=== PATIENT | female | born 1980 | race Caucasian/White ===

== ENCOUNTER 2020-09-05 08:59 | Emergency (ER) | payer SELFPAY ==
[2020-09-05 09:13] VITALS: BP 148/99; PULSE 75; RESP 20; TEMP 37.3; O2SAT 100
--- NOTE | 2020-09-05 09:13 | ED.SKABFB ---
HPI - Skin/Abscess/Foreign Bdy General Chief complaint: Skin/Abscess/Foreign Body Stated complaint: Rash Time Seen by Provider: 09/05/20 09:18 Source: patient and RN notes reviewed Mode of arrival: ambulatory Limitations: no limitations History of Present Illness HPI narrative: 40-year-old female presents with concern for rash. Reports rash on her neck, that has spread to her left antecubital area. She denies any known triggers, new detergents, new personal care products, new foods, new medicines, new household products. Reports the rash is mildly itchy. She denies any intervention. She denies swollen lips, swollen tongue, difficulty swallowing,, nausea, vomiting, diarrhea, fever MD complaint: rash Related Data Home Medications Medication Instructions Recorded Confirmed buprenorphine-naloxone 1 tablet SUBLINGUAL BID 09/05/20 09/05/20 Allergies Allergy/AdvReac Type Severity Reaction Status Date / Time No Known Allergies Allergy Verified 09/05/20 09:19 Review of Systems Review of Systems: Narrative: CONSTITUTIONAL: Denies malaise, chills, sweats, or fever. EYES: Denies visual changes, redness, or discharge. ENT: Denies rhinorrhea, congestion, sinus pain, otalgia or sore throat. Denies swollen lips, swollen tongue CARDIOVASCULAR: Denies chest pain, palpitations, or edema. RESPIRATORY: Denies cough or dyspnea. GASTROINTESTINAL: Denies abdominal pain, nausea, vomiting, diarrhea SKIN: Reports mildly itchy rash to the neck and left arm MUSCULOSKELETAL: Denies myalgia. NEUROLOGIC: Denies headache. All systems reviewed & are unremarkable except as noted in HPI and below PMFSH Comments At time of signature, agree with nursing past medical, surgical, social and family history. There is no relevant family history pertinent to the presenting complaint Exam Narrative: Exam Narrative: GENERAL: Well-appearing, well-nourished, and in no acute distress. HEAD: Normocephalic, atraumatic. EYES: PERRLA, conjunctivae clear, and EOMI. No nystagmus. ENT: Nares clear. Mucous membranes moist. Oropharynx without edema, erythema or lesions. Tonsils not enlarged and without exudate. NECK: Supple. CHEST: No respiratory distress. Clear to auscultation. No bony deformities, no asymmetry. Speaks in full sentences. HEART: Regular rate and rhythm. SKIN: Warm, dry. Patches of erythema, mild edema with satellite papules noted to the neck, left antecubital space, irregular borders consistent with contact dermatitis NEURO: Alert and oriented x3. PSYCH: Normal mood and affect Course Course Emergency Course: Patient is aware of diagnosis, understands and agrees to treatment plan. Anticipatory guidance given. Patient agrees to follow-up as directed and is aware of reasons to seek care at the emergency department. Portions of this record may have been created with voice recognition software Vital Signs Vital signs: Vital Signs Temperature 99.1 F 09/05/20 09:13 Pulse Rate 75 09/05/20 09:13 Respiratory Rate 20 09/05/20 09:13 Blood Pressure 148/99 H 09/05/20 09:13 Pulse Oximetry 100 09/05/20 09:13 Temperature 99.1 F 09/05/20 09:13 Pulse Rate 75 09/05/20 09:13 Respiratory Rate 20 09/05/20 09:13 Blood Pressure 148/99 H 09/05/20 09:13 Pulse Oximetry 100 09/05/20 09:13 Reviewed. Patient has been instructed to follow up with her primary care provider within the next week regarding her elevated blood pressure today. MDM - Skin/Abscess/Foreign Bdy MDM Narrative Medical decision making narrative: Does not appear at this time to be erythema multiforme, bullous, SJS, TEN; no evidence at this time to suggest RMSF, endocarditis or Lyme disease; patient looks well, nontoxic and is tolerating oral intake; no neurologic signs or symptoms; no headache, photophobia or neck pain; afebrile; appropriate for initial outpatient treatment; discussed the importance of follow-up, patient agrees; question, viral exanthema, contact dermatitis
[2020-09-05 09:33] VITALS: BP 120/66; PULSE 94; RESP 18; TEMP 36.9; O2SAT 100
== END 2020-09-05 09:34 | disposition home or self-care (01) ==
PROVIDERS: Emergency Provider Nurse Practitioner
DX: L25.9 Unspecified contact dermatitis, unspecified cause (principal)
CPT/HCPCS: 99213; G0463

== ENCOUNTER 2023-06-30 10:25 | Emergency (ER) | payer OTHER, SELFPAY ==
--- NOTE | ~2023-06-30 | XR_ITS ---
PA, oblique, and lateral views of the left fifth finger CLINICAL HISTORY: Injury FINDINGS: There is a transverse, minimally displaced fracture the distal tuft of the fifth distal pha lanx. No other fracture seen. No intra-articular extension. Joint spaces are preserved. Soft tissues are unremarkable. IMPRESSION: Transverse, minimally displaced fracture of the distal tuft of the fifth distal phalanx. Reviewed, dictated and finalized at location . RECAPPER
[2023-06-30 10:36] VITALS: BP 121/81; PULSE 77; RESP 20; TEMP 37.1; O2SAT 98
--- NOTE | 2023-06-30 11:02 | ED.UPPEXIN ---
HPI - Extremity Injury (Upper) General Chief Complaint: Extremity Injury, Upper Stated Complaint: Smashed left pinky finger Source: patient Mode of arrival: ambulatory Limitations: no limitations History of Present Illness HPI narrative: 42-year-old female presented for complaint of pain to the tip of the left little finger after injury today. Reports laceration across the nail bed and pain to the end of the finger. States the window of the tailgate of her vehicle slammed onto the finger when she closed the door. No treatment [employer]. Left hand dominant. Related Data Allergies Allergy/AdvReac Type Severity Reaction Status Date / Time No Known Allergies Allergy Verified 06/30/23 10:45 Review of Systems Review of Systems: CONSTITUTIONAL: Denies body aches, fever, chills EYES: Denies visual changes ENT: Denies rhinorrhea, congestion CARDIOVASCULAR: Denies chest pain, palpitations, or edema. RESPIRATORY: Denies cough or dyspnea. GASTROINTESTINAL: Denies abdominal pain, nausea, vomiting, or diarrhea. SKIN: Denies rash, itching, or wounds. MUSCULOSKELETAL: reports left little finger pain, laceration to nail Denies back pain, joint pain, or myalgia. NEUROLOGIC: Denies headache, numbness, tingling, or weakness. All systems reviewed & are unremarkable except as noted in HPI and below PMFSH Comments At time of signature, I have reviewed and agree with nursing past medical, surgical, social and family history unless otherwise noted. Please see nursing chart for further information. There is no relevant family history pertinent to the presenting complaint Exam Narrative: GENERAL: Well-appearing HEAD: Normocephalic, atraumatic. CHEST: Speaks in full sentences. No respiratory distress. HEART: Regular rate and rhythm. Normal and equal peripheral pulses. EXTREMITIES: Left 5th digit with Complete transverse laceration to middle of nail bed; erythema and hematoma to distal end of the digit with subungual hematoma to distal half of nail; mild active bleeding around nail. 5th finger has limited strength and sensation due to pain, normal range of motion to finger joints. Tenderness with light palpation of distal end of digit. No swelling. pulse palpable and equal bilaterally, skin warm, dry, pink. Capillary refill less than 3 seconds. SKIN: Warm, dry, no rash. NEURO: Alert and oriented x3. PSYCH: Normal mood and affect Course Course Emergency Course: Patient is aware of diagnosis, understands and agrees to treatment plan. Anticipatory guidance given. Patient agrees to follow-up as directed and is aware of reasons to seek care at the emergency department. Portions of this record may have been created with voice recognition software Level of Care: Express Care Visit Vital Signs Vital signs: Vital Signs Temperature 98.7 F 06/30/23 10:36 Pulse Rate 77 06/30/23 10:36 Respiratory Rate 20 06/30/23 10:36 Blood Pressure 121/81 06/30/23 10:36 Pulse Oximetry 98 06/30/23 10:36 Oxygen Delivery Room Air 06/30/23 10:36 Temperature 98.7 F 06/30/23 10:36 Pulse Rate 77 06/30/23 10:36 Respiratory Rate 20 06/30/23 10:36 Blood Pressure 121/81 06/30/23 10:36 Pulse Oximetry 98 06/30/23 10:36 Oxygen Delivery Room Air 06/30/23 10:36 Reviewed MDM - Extremity Injury (Upper) MDM Narrative Medical decision making narrative: results of x-ray reviewed with patient. Dressing and finger splint applied to the site after wound was cleansed. Contacted Dr. Love's office who requested patient call to schedule the f/u appointment. Discussed physical exam findings and wound care with pt, reviewed Rxs. Advised supportive measures and signs/symptoms to go to the ER. Pt is appropriate for outpt treatment and f/u. Differential Diagnosis Differential diagnosis: Likely dislocation of finger and other ( finger fracture, subungual hematoma, nail bed laceration) Imaging Data Radiologist's impression: Patient
== END 2023-06-30 11:28 | disposition home or self-care (01) ==
PROVIDERS: Emergency Provider Nurse Practitioner Family
DX: S62.637B Displaced fracture of distal phalanx of left little finger, initial encounter for open fracture (principal); W20.8XXA Other cause of strike by thrown, projected or falling object, initial encounter
CPT/HCPCS: 29130; 73140; 99214; G0463

== ENCOUNTER 2023-10-14 08:15 | Outpatient (CLI) | payer OTHER, SELFPAY ==
[2023-10-14 18:45] LABS: Hematocrit 40.7 % (37.0-47.0); Hemoglobin 12.7 g/dL (12.0-15.0); Mean Corpuscular HGB Conc 31.2 g/dl (32-36); Mean Corpuscular Hemoglobin 30.4 pg (26-34); Mean Corpuscular Volume 97.4 fl (80-100); Mean Platelet Volume 11.2 fl (7.4-10.4); Platelet Count Result 283 k/mm3 (150-375); Red Blood Count 4.18 M/mm3 (4.2-5.4); White Blood Count 7.6 K/mm3 (4.5-10.0)
[2023-10-14 19:09] LABS: Alanine Aminotransferase 28 U/L (6-35); Albumin Level 3.8 g/dL (3.5-5.1); Alkaline Phosphatase 52 U/L (38-126); Anion Gap 6 mmol/L (8-16); Aspartate Amino Transferase 63 U/L (14-36); Bilirubin,Total 0.7 mg/dL (0.2-1.3); Blood Urea Nitrogen 12 mg/dL (7-17); Calcium 8.9 mg/dL (8.4-10.2); Carbon Dioxide 28 mmol/L (22-30); Chloride 103 mmol/L (98-107); Cholesterol 137 mg/dL (0-200); Estimated Glomerular Filt Rate > 60; Glucose 102 mg/dL (65-110); HDL Direct 48 mg/dL; Sodium 137 mmol/L (137-145); Triglycerides 120 mg/dL (<150)
[2023-10-14 19:19] LABS: LDL Cholesterol Direct 67 mg/dL
[2023-10-17 19:28] LABS: Lupus dRVVT Screen 39 sec (<=45); PTT-LA Screen 34 sec (<=40)
[2023-10-17 19:48] LABS: ANA Cascade Screen Negative (Negative)
== END 2023-10-14 08:16 | disposition home or self-care (01) ==
PROVIDERS: PCP Nurse Practitioner Adult Health; Visit Provider Nurse Practitioner Adult Health
DX: R21 Rash and other nonspecific skin eruption (principal); Z13.9 Encounter for screening, unspecified
CPT/HCPCS: 36415; 80053; 80061; 84443; 85027; 85613; 85730; 86038; 86225; 86235; 86364

== ENCOUNTER 2024-04-29 15:56 | Outpatient (CLI) | payer OTHER, SELFPAY ==
--- NOTE | ~2024-04-29 | XR_ITS ---
EXAMINATION: XR abdomen/kub 1V DATE: 04/29/2024 16:17 INDICATION: Intra-abdominal and pelvic swelling. TECHNIQUE: A supine view of the abdomen on 2 radiographs was obtained. COMPARISON: None. FINDINGS: There are no dilated loops of bowel. There is a large volume of stool in the colon. Surgica l clips in the right upper quadrant are likely from cholecystectomy. IMPRESSION: 1. Nonobstructive bowel gas pattern. Reviewed, dictated and finalized at location A.
[2024-04-29 18:36] LABS: Basophils Percent Auto 0.4 % (0.2-1.2); Eosinophils Absolute Auto 0.1 K/mm3 (0-0.3); Eosinophils Percent Auto 1.9 % (0-4.4); Hematocrit 42.2 % (37.0-47.0); Hemoglobin 14.2 g/dL (12.0-15.0); Immature Granulocyte Absolute 0.01 K/mm3 (0.00-0.031); Immature Granulocyte Percent A 0.1 % (0-0.5); Lymphocytes Absolute Auto 1.94 K/mm3 (0.9-3.2); Lymphocytes Percent Auto 26.6 % (18.3-44.2); Mean Corpuscular HGB Conc 33.6 g/dl (32-36); Mean Corpuscular Hemoglobin 31.6 pg (26-34); Mean Corpuscular Volume 93.8 fl (80-100); Mean Platelet Volume 11.5 fl (7.4-10.4); Monocytes Absolute Auto 0.7 K/mm3 (0.1-0.6); Monocytes Percent Auto 8.9 % (2.6-8.5); Neutrophils Absolute Auto 4.5 K/mm3 (1.3-6.7); Neutrophils Percent Auto 62.1 % (45.5-73.1); Platelet Count Result 285 k/mm3 (150-375); Red Cell Distribution Width 12.7 % (11.5-14.5); White Blood Count 7.3 K/mm3 (4.5-10.0)
[2024-04-29 18:47] LABS: Alanine Aminotransferase 20 U/L (6-35); Albumin Level 4.4 g/dL (3.5-5.1); Alkaline Phosphatase 49 U/L (38-126); Amylase 72 U/L (30-110); Anion Gap 8 mmol/L (4-12); Aspartate Amino Transferase 57 U/L (14-36); Bilirubin,Total 0.6 mg/dL (0.2-1.3); Blood Urea Nitrogen 12 mg/dL (7-17); Calcium 8.6 mg/dL (8.4-10.2); Carbon Dioxide 31 mmol/L (22-30); Chloride 98 mmol/L (98-107); Estimated Glomerular Filt Rate > 60; Glucose 90 mg/dL (65-110); Lipase 52 U/L (23-300); Potassium 3.7 mmol/L (3.4-5.0); Sodium 137 mmol/L (137-145)
== END 2024-04-29 15:57 | disposition home or self-care (01) ==
LOC: ANHBWCLAB 15:57
PROVIDERS: PCP Nurse Practitioner Adult Health; Visit Provider Nurse Practitioner Adult Health
DX: R19.00 Intra-abdominal and pelvic swelling, mass and lump, unspecified site (principal)
CPT/HCPCS: 36415; 74018; 80048; 80076; 82150; 83690; 85025

== ENCOUNTER 2024-05-11 12:13 | Outpatient (CLI) | payer OTHER, SELFPAY ==
--- NOTE | ~2024-05-11 | US_ITS ---
EXAMINATION: US soft tissue abdomen DATE: 05/11/2024 12:45 INDICATION: R19.00 - Intra-abdominal and pelvic swelling, mass and emory... . TECHNIQUE: Grayscale and Doppler ultrasound images of the abdominal soft tissues were obtained. COMPARISON: None. FINDINGS: The area of clinical concern in the anterior abdominal soft tissues in the right upper quad rant was sonographically interrogated revealing no solid or cystic mass. No abnormality elicited with the Valsalva maneuver. IMPRESSION: No sonographic abnormality detected in the area of concern. Reviewed, dictated and finalized at location K.
== END 2024-05-11 12:14 | disposition home or self-care (01) ==
LOC: ANHIMG 12:16
PROVIDERS: PCP Nurse Practitioner Adult Health; Visit Provider Nurse Practitioner Adult Health
DX: R19.00 Intra-abdominal and pelvic swelling, mass and lump, unspecified site (principal)
CPT/HCPCS: 76705

== ENCOUNTER 2024-05-17 09:21 | Outpatient (CLI) | payer OTHER, SELFPAY ==
--- NOTE | ~2024-05-17 | CT_ITS ---
Non-contrast CT scan of the Abdomen Clinical indication: Right upper quadrant pain Technique: 2.5 mm axial scans were obtained through the abdomen without intravenous or oral contrast . Dose reduction technique was used on this scan by utilizing automated exposure control and iterativ e reconstruction technique. The dose-length product (DLP) was 661.78 mGy-cm. Findings: Images through the lung bases reveal no abnormalities. There is no evidence of renal or ureteral calculi. The kidneys and the ureters are nondilated. The liver, spleen, pancreas, and adrenals appear normal. Cholecystectomy clips are present. There is no aortic aneurysm. Visualized bowel loops are unremarkable. Small fat-containing umbilical hernia noted. No ascites. Germán ateral L4 pars interarticularis defects are noted, with grade 1 anterolisthesis of L4 over L5. Impression: No acute abnormality. Bilateral L4 pars interarticularis defects, with grade 1 anterolisthesis of L4 over L5. Small fat-containing umbilical hernia. Reviewed, dictated and finalized at [facility]. Impression: No acute abnormality. Bilateral L4 pars interarticularis defects, with grade 1 anterolisthesis of L4 over L5. Small fat-containing umbilical hernia.
== END 2024-05-17 09:22 | disposition home or self-care (01) ==
LOC: MICIMG 09:21
PROVIDERS: PCP Nurse Practitioner Adult Health; Visit Provider Nurse Practitioner Adult Health
DX: R19.00 Intra-abdominal and pelvic swelling, mass and lump, unspecified site (principal); K42.9 Umbilical hernia without obstruction or gangrene
CPT/HCPCS: 74150

== ENCOUNTER 2024-08-10 08:42 | Outpatient (CLI) | payer OTHER, SELFPAY ==
--- NOTE | ~2024-08-10 | XR_ITS ---
Lumbosacral Spine: AP and lateral views Clinical History: Pain Findings: The normal lordotic curve is maintained. There is 14 mm anterolisthesis of L4 over L5, with bilateral L4 pars intra-articular defects present. There is 11 mm anterolisthesis of L5 over S1. The re is severe facet arthropathy from L3 through S1. There is moderate degenerative spurring at L4-L5. There is advanced degenerative disc narrowing at L5-S1. The sacroiliac joints are normally outlined. Impression: Bilateral L4 pars interarticularis defects somewhat 14 mm anterolisthesis of L4 over L5. 11 mm anterolisthesis of L5 over S1. Advanced degenerative spondylosis of the lumbar spine, as above. Reviewed, dictated and finalized at location . SPORTATION DEPARTMENT HEAD Impression: Bilateral L4 pars interarticularis defects somewhat 14 mm anterolisthesis of L4 over L5. 11 mm anterolisthesis of L5 over S1. Advanced degenerative spondylosis of the lumbar spine, as above.
== END 2024-08-10 08:43 | disposition home or self-care (01) ==
PROVIDERS: PCP Nurse Practitioner Adult Health; Visit Provider Nurse Practitioner Adult Health
DX: M47.896 Other spondylosis, lumbar region (principal)
CPT/HCPCS: 72100

== ENCOUNTER 2024-08-20 14:14 | Outpatient (CLI) | payer OTHER, SELFPAY ==
--- NOTE | ~2024-08-20 | MR_ITS ---
EXAMINATION: MR lumbar spine wo con DATE: 08/20/2024 14:43 INDICATION: Back pain. Spondylolisthesis. TECHNIQUE: Magnetic resonance imaging (MRI) of the lumbar spine was performed without intravenous con trast. Sequences included sagittal T2-weighted FSE, sagittal T2-weighted FS FSE, sagittal T1-weighted FSE, and axial T2-weighted FSE. COMPARISON: Radiographs dated 08/10/[address] abdomen dated 05/17/2024. FINDINGS: L4 and L5 spondylolysis with chronic bilateral pars interarticularis defects and 6 mm anterolisthesis L4 on L5 and 7 mm anterolisthesis L5 on S1. Vertebral body heights are normal. Normal marrow signal . Severe disc height loss at L5-S1 and moderate disc height loss at L4-L5, both levels with annular f issures. The more cephalad lumbar and lower thoracic discs are normal. The conus medullaris terminate s at L1-L2. There is normal signal in the caudal spinal cord. Paravertebral soft tissues are unremark able. The following disc levels are specifically discussed: T12-L1: Disc is minimally bulging. There is bilateral facet joint osteoarthritis. There is no neural foraminal stenosis. There is no central canal stenosis. L1-L2: Disc is minimally bulging. There is mild bilateral facet joint osteoarthritis. There is no nayely ral foraminal stenosis. There is no central canal stenosis. L2-L3: Disc is minimally bulging. There is mild bilateral facet joint osteoarthritis. There is minima l bilateral neural foraminal stenosis. There is no central canal stenosis. L3-L4: The disc does not extend beyond the endplate margin. There is mild right and moderate left fac et joint osteoarthritis. There is mild bilateral neural foraminal stenosis. There is no central canal stenosis. L4-L5: Disc is bulging with annular fissure and superimposed central disc extrusion with disc materia l extending centimeters cephalad to the level of the inferior endplate of L4. Along with the bilatera l pars interarticularis defects there is severe bilateral facet joint osteoarthritis. There is modera te bilateral neural foraminal stenosis. There is moderate central canal stenosis. L5-S1: Disc is bulging with annular fissure and small central to left paracentral disc extrusion with disc material extending 4 mm cephalad to the level of the inferior endplate of L5. Bilateral pars in particular is defects and severe bilateral facet joint osteoarthritis. There is moderate bilateral n eural foraminal stenosis. There is minimal central canal stenosis with mild narrowing of the left and right lateral recesses. IMPRESSION: 1. 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 2. Moderate to severe lower lumbar spondylosis with minimal spondylosis and more cephalad lumbar spin e. Reviewed, dictated and finalized at location B. ILIZER APPLICATOR IMPRESSION: 1. Chronic L4 and L5 spondylolysis with bilateral pars interarticularis defects and grade 1 anterolisthesis at both levels. 2. Moderate to severe lower lumbar spondylosis with minimal spondylosis and mor e cephalad lumbar spine.
== END 2024-08-20 14:15 | disposition home or self-care (01) ==
LOC: GOSHIMG 14:15
PROVIDERS: PCP Nurse Practitioner Adult Health; Visit Provider Nurse Practitioner Adult Health
DX: M47.896 Other spondylosis, lumbar region (principal)
CPT/HCPCS: 72148

== ENCOUNTER 2024-09-08 13:30 | Emergency (ER) | payer OTHER, SELFPAY ==
[2024-09-08 13:35] VITALS: BP 122/75; PULSE 84; RESP 16; TEMP 37.2; O2SAT 100
[2024-09-08 14:00] LABS: EDCOVIDSCREEN Negative (Negative); EDINFLUASCREEN Positive (Negative); EDINFLUBSCREEN Negative (Negative); EDSTREPNEGPOS1 Negative (Negative)
--- NOTE | 2024-09-08 14:05 | ED.URI ---
HPI - URI/Sore Throat General Chief Complaint: Upper Respiratory Infection Stated Complaint: Sore Throat/Cough/Eye Swelling Time Seen by Provider: 09/08/24 14:05 Source: patient Mode of arrival: ambulatory Limitations: no limitations History of Present Illness HPI Narrative: 44 yo F presents with c/o 3 days of cough, congestion, fatigue, low grade fever, bodyaches, chills, headache. NO CP or SOB. Denies N/v/D. Woke up wtih AM with swelling and redness to L cheek. Painful to L tearduct and lower eyelid. No drainage. No pain to L eye. . All systems reviewed and negative except as noted above. Related Data Home Medications ?Medication ?Instructions ?Recorded ?Confirmed ?Last Taken ?Type buprenorphine 8 mg-naloxone 2 mg film sublingual 04/29/24 08/10/24 Unknown History sublingual film Allergies Allergy/AdvReac Type Severity Reaction Status Date / Time No Known Allergies Allergy Verified 09/08/24 13:45 Review of Systems Review of Systems: CONSTITUTIONAL: Denies fever, chills, or sweats. EYES: Denies visual changes redness, or discharge. reports pain to left Tear doc and lower eyelid. ENT: reports rhinorrhea, congestion, sore throat. Denies otalgia. CARDIOVASCULAR: Denies chest pain, palpitations, or edema. RESPIRATORY: reports cough. Denies dyspnea. GASTROINTESTINAL: Denies abdominal pain, nausea, vomiting, or diarrhea. GENITOURINARY: Denies dysuria or hematuria. SKIN: Denies rash or itching. reports redness and swelling to left cheek MUSCULOSKELETAL: Denies back pain, joint pain. Reports myalgia. NEUROLOGIC: Denies headache, numbness, or weakness. PSYCHIATRIC: Denies anxiety or depression. All other systems reviewed are negative, except as documented in HPI. [facility] Past Medical History Medical History Other specified disorder of gallbladder Arthritis Anxiety Surgical History Surgical History Hx laparoscopic cholecystectomy 2019 Family History Family History Mother Depression Grandparent Diabetes mellitus Hypertension Grandparent Diabetes mellitus Hypertension Heart disease History of ETOH abuse Social History Social History Smoking status: Never smoker Alcohol intake: never Substance use: never Lack of Transportation: No Lack of Food: Never True Current Housing: I Have Housing Concerned About Future Housing: No Difficulty Paying Gas/Electric Bills: No Difficulty Paying for Meds: No Currently Unemployed: No Education: High School Diploma/GED Difficulty w/ Childcare or Family Care: No Living arrangements: with family Occupation/Education: occupation 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 There is no relevant family history pertinent to the presenting complaint. Exam Narrative: GENERAL: This is a well-nourished, well-developed patient, ill-appearing but no acute distress HEAD: normocephalic, atraumatic. erythema to L cheek difficult to assess to assess due to makeup but appears mild with mild swelling, warm and tender on palpation. no fluctuance concerning for abscess EYES: PERRL. Sclera clear/white. Vision is grossly intact. no swelling to eyelids. no discharge. EARS: External ears normal, auditory canals clear and without drainage, TMs normal without perforation. Hearing grossly intact. NOSE: External nose normal with moderate congestion, clear nasal drainage THROAT: Mucous membranes moist, mild erythema to posterior pharynx without swelling or exudates NECK: Neck supple, non-tender without lymphadenopathy, masses or thyromegaly. CARDIOVASCULAR: Regular rate and rhythm without murmurs, gallops, or rubs. RESPIRATORY: Clear to auscultation. Breath sounds equal bilaterally. No wheezes, rales, or rhonchi. SKIN: warm, Dry, intact with no suspicious lesions or rash, good texture and turgor. NEURO: awake, alert, and oriented to person, place and time. There were no obvious focal neurologic abnormalities. EXTREMITIES: No joint tenderness, effusion, or edema noted. Course Course Level of Care: Express Care Visit Vital Signs Vital signs: Vital Signs Temperature 37.2 C 09/08/24 13:35 Pulse Rate 84 09/08/24 13:35 Respiratory Rate 16 09/08/24 13:35 Blood Pressure 122/75 09/08/24 13:35 Pulse Oximetry 100 09/08/24 13:35 Oxygen Delivery Room Air 09/08/24 13:35 Temperature 37.2 C 09/08/24 13:35 Pulse Rate 84 09/08/24 13:35 Respiratory Rate 16 09/08/24 13:35 Blood Pressure 122/75 09/08/24 13:35 Pulse Oximetry 100 09/08/24 13:35 Oxygen Delivery Room Air 09/08/24 13:35 reviewed MDM - URI/Sore Throat MDM Narrative Medical decision making narrative: Patient is aware of diagnosis, understands and agrees to treatment plan. Anticipatory guidance given. Patient agrees to follow-up as directed and is aware of reasons to seek care at the emergency department. Portions of this record may have been created with voice recognition software patient positive for influenza A. Offered Tamiflu but did not feel was necessary will continue [id number] medications to treat symptoms. Will treat left facial swelling and erythema for cellulitis has precaution. Symptoms just started this morning. Differential Diagnosis Differential diagnosis: Likely upper respiratory infection, sinusitis, viral infection and influenza Lab Data Labs: Lab Results 09/08/24 Range/Units 13:58 POC Influenza A Ag Positive (Negative) POC Influenza B Ag Negative (Negative) POC SARS CoV-2 Ag Negative (Negative) POC Grp A Strep Screen Negative (Negative) Discharge Plan Discharge Clinical Impression: Influenza A, Cellulitis of face Patient Disposition: Home, Self-Care Condition: Stable Instructions: Antibiotic Form, Cellulitis (ED), Influenza (ED) Additional Instructions: you were positive for influenza today. Influenza is a virus and symptoms may last 10-14 days. Take Tylenol or ibuprofen every 6-8 hours as needed for pain and fever. Drink at least 64 oz of water a day. Place cool mist humidifier in bedroom where you sleep. Take antibiotic as prescribed to treat cellulitis. Follow-up with your primary care physician if symptoms are not improving. Patient Language: [place] Prescriptions: New benzonatate 200 mg capsule 200 mg PO TID PRN (Reason: cough) Qty: 20 0RF amoxicillin-pot clavulanate 875-125 mg tablet 1 tablet PO Q12H 10 Days Qty: 20 0RF No Action buprenorphine-naloxone 8-2 mg film sublingual Follow-up/Referrals: Lorena Gaines APRN [Primary Care Provider] - Stand Alone Forms: Work/School Release IP Time of Disposition: 14:13
== END 2024-09-08 14:18 | disposition home or self-care (01) ==
PROVIDERS: Emergency Provider Nurse Practitioner Family; PCP Nurse Practitioner Adult Health
DX: J10.1 Influenza due to other identified influenza virus with other respiratory manifestations (principal); L03.211 Cellulitis of face; M19.90 Unspecified osteoarthritis, unspecified site; Z20.822 Contact with and (suspected) exposure to COVID-19
CPT/HCPCS: 87081; 87426; 87804; 87880; 99213; G0463